=== PATIENT | female | born 1960 | race Caucasian/White ===

== ENCOUNTER 2020-07-13 10:58 | Emergency (ER) | payer OTHER ==
[~2020-07-13] VITALS: Ht 170.2 cm; Wt 86.6 kg
[~2020-07-13 10:58] MED LIST: ALLOPURINOL300 MG PO; ASPIRIN325 MG PO; CELECOXIB200 MG PO; CHANTIX1 MG PO; CYCLOBENZAPRINE10 MG PO; GABAPENTIN300 MG PO; HYDROCODON-ACE1 EA11 PO; LANTUS100 UNITS/ SUB-Q; LISINOPRIL30 MG PO; METFORMIN HCL1000 M1 PO; NEURONTIN300 MG PO; NORCO 10-325 T1 EACH PO; OMEPRAZOLE40 MG PO; OXYBUTYNIN CHLO10 MG PO; PROBIOTIC1 EAC1 PO; STOOL SOFTENER100 MG PO; VICTOZA 2-0.6 MG/0.1 SUB-Q; VITAMIN D50000 UNI1 PO
== END 2020-07-13 13:35 | disposition home or self-care (01) ==
LOC: ED 10:58
DX: D64.9 Anemia, unspecified (principal); E11.9 Type 2 diabetes mellitus without complications; I10 Essential (primary) hypertension; Z87.891 Personal history of nicotine dependence; Z88.5 Allergy status to narcotic agent; Z91.048 Other nonmedicinal substance allergy status; Z91.040 Latex allergy status; Z79.899 Other long term (current) drug therapy; Z79.4 Long term (current) use of insulin
CPT/HCPCS: 80048; 82607; 82728; 82746; 83540; 84466; 85025; 85045; 99284

== ENCOUNTER 2020-09-27 08:45 | Day surgery (SDC) | payer OTHER ==
[~2020-09-27] VITALS: Ht 170.2 cm; Wt 91.4 kg
[~2020-09-27 08:45] MED LIST changes: +HUMALOG100 UNIT/2 SUB-Q
--- NOTE | 2020-09-27 09:33 | NUR ---
0845: PATIENT ARRIVED TO DAY SURGERY UNIT. PLACED IN ROOM 6. PATIENT STATED SHE CAME EARLY FOR PROCEDURE DUE TO HER BLOOD SUGAR BEING LOW. PATIENT STATED HER BLOOD SUGAR WAS 51 MG/DL UPON AWAKENING THIS MORNING. 0855: BLOOD SUGAR CHECKED. BLOOD SUGAR 65 MG/DL. 0900: IV STARTED BY OTHER RN WHILE BLOOD SUGAR WAS REPORTED TO BURNER TENDER. NEW ORDERS RECEIVED. 09: 1/2 AMP OF D50 GIVEN IV TO PATIENT. THEN FLUSHED WITH 10 ML OF NS. 924: BLOOD SUGAR RECHECKED. BLOOD SUGAR 129 MG/DL. IV FLUIDS CHANGED TO D5 LR. SISTER AT BEDSIDE. CALL LIGHT WITHIN REACH.
[2020-09-27] MEDS ORDERED: PIOGLITAZONE HC15 MG PO (10:04)
--- NOTE | 2020-09-27 15:29 | NUR ---
09/27/20 1529 Elida Santos 1522- PT ARRIVES TO PACU NONAROUSABLE TO NOXIOUS STIMULI WITH AN OPA IN PLACE. RESP EVEN AND UNLABORED. OXYGEN SAT HIGH 90'S TO 100% ON 10L VIA MASK. 1526- OXYGEN TITRATED DOWN TO 6L VIA MASK. CBG TAKEN AND IS 146. MADELYN BAILEY CRNA AWARE. PT PASSING LARGE AMOUNTS OF FLATUS.
--- NOTE | 2020-09-28 11:20 | OR ---
[facility] [address] [place], [place] [address] Signed DATE OF OPERATION: 09/27/2020 SURGEON: Madelyn Carter MD PREOPERATIVE DIAGNOSIS: Anemia (hematocrit 24.6 with 0% reticulocytes, assess for anemia). POSTOPERATIVE DIAGNOSES: 1. Possible low-grade mid esophageal varices. 2. Diverticular changes of sigmoid colon. PROCEDURES: 1. Esophagogastroduodenoscopy with biopsy. 2. Total colonoscopy to cecum. ANESTHESIA: Intravenous sedation, propofol infusion, Madelyn Coleman CRNA INDICATIONS: This 60-year-old white woman is a patient Dr. Jaquelin Chapa, known to me from the past. She has numerous medical problems including distant history of hepatitis C. She also has diabetes, smoking, and so on. She has had H. pylori associated with gastritis in the past. She continues to smoke 1/2 pack of cigarettes a day. She is admitted at this time to undergo upper endoscopy to better characterize the source of anemia, which was consider "profound" with hematocrit of 24.6 in early July with normal platelet count with reticulocyte count of 0%. She is admitted to undergo upper endoscopy and colonoscopy to assess for gastrointestinal source of bleeding. If this is negative, consideration might be made for bone marrow biopsy. The risks of bleeding, infection, and perforation related to upper endoscopy and colonoscopy were reviewed with her. She understands and wished to proceed. FINDINGS: Upper endoscopy showed no lesion to account for anemia particularly. She did have what appeared to be low-grade esophageal varices, though this is not entirely certain. Photographs were taken of course. CLOtest biopsy was negative at 30 minutes post procedure. There was mild antral gastritis. As regards to the colon, the prep was adequate. Complete colonoscopy was undertaken to the cecum. She had diverticula of the sigmoid, but no sign of arteriovenous malformation, polyps, cancer, or colitis. DESCRIPTION OF PROCEDURE: Electronically Signed By: MADELYN CARTER MD 09/28/20 1120 PATIENT NAME: ABIGAIL STARR OPERATIVE REPORT DATE OF : 56 REPORT #: [id number] PHYSICIAN: MADELYN CARTER MD PCP: JAQUELIN CHAPA MD REPORT IS CONFIDENTIAL AND NOT TO BE RELEASED WITHOUT AUTHORIZATION [facility] [address] [place], [place] [address] Signed The patient was brought to the endoscopy suite and placed in lateral decubitus position, given intravenous sedation by the emery wheel molder with propofol infusional technique and full cardiopulmonary monitoring. A bite block was placed. An Olympus video upper endoscope was passed in the hypopharynx. Vocal cords were normal. Scope was advanced to the esophagus throughout its length. It showed no sign of neoplasm or stricture, but there was some suspicion of possible low-grade varices in the mid esophagus. The distal esophagus was normal, however. The scope was passed to the stomach, which was insufflated with air. Rugal folds were normal. There was mild antral gastritis. The pylorus was normal. Scope was passed through into the duodenum, which was normal. Biopsies were taken there, though there was no clear evidence of celiac disease. The scope was withdrawn and biopsies then taken of the antrum. Retroflexed view was undertaken showing a somewhat poor flap valve, but no large hiatal hernia per se. There were no gastric varices. There was no ulceration. There was no neoplasm. The scope was withdrawn to the distal esophagus, which looked reasonably normal and biopsies were obtained. There was no Kitchen's epithelium or varices at that site. The scope was withdrawn further and there did appear to be may have been low-grade varices. Photographs were taken. The scope was further withdrawn and removed. Plans were then made for colonoscopy. Additional sedation was given and digital rectal examination performed, which was normal. An Olympus video colonoscope was passed into the rectum and manipulated throughout the colon noting diverticular change of the sigmoid. The scope was ultimately advanced to the cecum. The ileocecal valve and appendiceal orifice were normal. Scope was withdrawn from the cecum and careful inspection showed no sign of polyps, colitis, or cancer; only diverticular changes of the sigmoid. Retroflexed view of the rectum was normal. The scope was removed and the patient was taken to the recovery room in good condition. CONCLUDING DIAGNOSES: No clear evidence of lesion to account for anemia. She will return to the ongoing care of Dr. Jaquelin Chapa and likely Dr. Blum. We will obtain a CBC today with copies to Dr. Blum and to Dr. Chapa to assess in particular for reticulocyte count as well. MD SELENA Gonzales/RONEN /[id number] Electronically Signed By: MADELYN CARTER MD 09/28/20 1120 PATIENT NAME: ABIGAIL STARR OPERATIVE REPORT DATE OF : 56 REPORT #: [id number] PHYSICIAN: MADELYN CARTER MD PCP: JAQUELIN CHAPA MD REPORT IS CONFIDENTIAL AND NOT TO BE RELEASED WITHOUT AUTHORIZATION [facility] [address] [place], [place] [address] Signed cc: MD Jaquelin Rebolledo MD Copies: JAQUELIN CHAPA DMD, ROBERT C MD ~ Electronically Signed By: MADELYN CARTER MD 09/28/20 1120 PATIENT NAME: ABIGAIL STARR USHA OPERATIVE REPORT DATE OF : 56 REPORT #: [id number] PHYSICIAN: MADELYN CARTER MD PCP: JAQUELIN CHAPA MD REPORT IS CONFIDENTIAL AND NOT TO BE RELEASED WITHOUT AUTHORIZATION
--- NOTE | 2020-10-01 14:28 | PATH ---
[facility] [address] [place], [place] [address] Signed SPECIMEN(S): A DUODENAL BIOPSY SPECIMEN(S): B ANTRUM/PYLORUS BIOPSY SPECIMEN(S): C LOWER ESOPHAGEAL BIOPSY SPECIMEN SOURCE: A. DUODENAL BIOPSY B. ANTRUM/PYLORUS BIOPSY C. LOWER ESOPHAGEAL BIOPSY CLINICAL HISTORY: Esophagogastroduodenoscopy, colonoscopy with propofol with poss biopsies. Anemia, pain and reflux. EGD: Possible esophageal varices. Colon: Diverticulosis. MICROSCOPIC DESCRIPTION: Histologic sections of all submitted blocks are examined by light microscopy. These findings, together with the gross examination, support the pathologic diagnosis. FINAL PATHOLOGIC DIAGNOSIS: A. Duodenum, biopsy: - Duodenal mucosa with no histopathologic abnormality. - Negative for increased intraepithelial lymphocytes. - Negative for dysplasia or malignancy. B. Stomach, antrum/pylorus, biopsy: - Oxyntic type mucosa with reactive changes. - Negative for Helicobacter organisms on HE stain. - Negative for dysplasia or malignancy. C. Esophagus, lower, biopsy: - Squamous mucosa with chronic inflammation and reactive epithelial changes, consistent with reflux esophagitis. - Negative for intestinal metaplasia, dysplasia, or malignancy. NAL:cml:C2NR GROSS DESCRIPTION: Three specimens are received in three containers, labeled "CB." A. The specimen, labeled "CB, duodenum biopsy," is received in formalin and consists of two peres soft tissue fragments that measure 0.1-0.2 cm in greatest dimension. The specimen is entirely submitted in cassette (A1). B. The specimen, labeled "CB, antrum biopsy," is received in formalin and consists of one peres soft tissue fragment that measures 0.2 cm in greatest PATIENT NAME: ABIGAIL STARR PATHOLOGY DATE OF : 56 REPORT #: [id number] PHYSICIAN: KATERIN TRVIEDI PCP: JAQUELIN CHAPA MD REPORT IS CONFIDENTIAL AND NOT TO BE RELEASED WITHOUT AUTHORIZATION [facility] [address] [place] [address] Signed dimension. The specimen is entirely submitted in cassette (B1). C. The specimen, labeled "CB, lower esophagus biopsy," is received in formalin and consists of one peres soft tissue fragment that measures 0.2 cm in greatest dimension. The specimen is entirely submitted in cassette (C1). JS (under the direct supervision of a pathologist) The Gross Description was prepared using a voice recognition system. The report was reviewed for accuracy; however, sound-alike word errors, addition and/or deletions may occur. If there is any question about this report, please contact Client Services. PERFORMING LABORATORY: The technical component was performed by [facility], [address] [place] [id number] (Pickle Solution Maker: Gaby Tijerina MD; CLIA# [id number]). [facility], [address] [address] (CLIA# [id number]). Diagnostician: Yohana De La Cruz MD Pathologist Electronically Signed 10/01/2020 Copies: ~ PATIENT NAME: ABIGAIL STARR PATHOLOGY DATE OF : 56 REPORT #: [id number] PHYSICIAN: KATERIN TRIVEDI PCP: JAQUELIN CHAPA MD REPORT IS CONFIDENTIAL AND NOT TO BE RELEASED WITHOUT AUTHORIZATION
== END 2020-09-27 15:55 | disposition home or self-care (01) ==
LOC: OPS 08:45 → DS 10:45 → OPS 12:15 → DS 12:15 → OPS 15:55
PROVIDERS: ATTEND Surgery
PROC: 0DB98ZZ Excision of Duodenum, Via Natural or Artificial Opening Endoscopic (ICD-10-PCS; principal; 2020-09-27 12:15)
PROC: 0DJD8ZZ Inspection of Lower Intestinal Tract, Via Natural or Artificial Opening Endoscopic (ICD-10-PCS; 2020-09-27 12:15)
DX: D50.9 Iron deficiency anemia, unspecified (principal); K21.00 Gastro-esophageal reflux disease with esophagitis, without bleeding; K57.30 Diverticulosis of large intestine without perforation or abscess without bleeding; K29.70 Gastritis, unspecified, without bleeding; E11.9 Type 2 diabetes mellitus without complications; I10 Essential (primary) hypertension; F17.210 Nicotine dependence, cigarettes, uncomplicated; B19.20 Unspecified viral hepatitis C without hepatic coma; Z79.84 Long term (current) use of oral hypoglycemic drugs; Z79.4 Long term (current) use of insulin
CPT/HCPCS: J2270; J2704; J7121

== ENCOUNTER 2021-02-25 05:40 | Day surgery (SDC) | payer OTHER ==
[~2021-02-25] VITALS: Ht 170.2 cm; Wt 92.0 kg
[~2021-02-25 05:40] MED LIST changes: +DICLOFENAC35 MG PO; +PIOGLITAZONE HC15 MG PO; +ULTRAM50 MG PO
[2021-02-25] MEDS ORDERED: OXYCODONE HCL5 MG PO (09:03)
[2021-02-25] MEDS ORDERED: XARELTO10 MG PO (09:03)
[2021-02-25] MEDS ORDERED: CELECOXIB200 MG PO (09:03)
[2021-02-25] MEDS ORDERED: SENNA LAX8.6 MG PO (09:04)
--- NOTE | 2021-03-01 07:05 | OR ---
[facility] [address] [place], [place] [address] Signed DATE OF OPERATION: 02/25/2021 SURGEON: Burke Sheets MD PREOPERATIVE DIAGNOSIS: Avascular necrosis, right hip. POSTOPERATIVE DIAGNOSIS: Avascular necrosis, right hip. PROCEDURE PERFORMED: Right total hip arthroplasty with Jordy. CAMPUS WELLNESS COORDINATOR: Roselia Lockwood PA-C. Roselia was present and critical for all portions of procedure. ANESTHESIA: Spinal. BLOOD LOSS: 200 mL. IMPLANTS: Napoleon size 6 Accolade II stem, 52 mm cup and -5 head. BRIEF HISTORY: Lorraine is a 60-year-old female with progressive worsening of hip pain. X-rays were relatively good. MRI showed a large area of AVN and she continued to have pain despite nonoperative treatment. DESCRIPTION OF PROCEDURE: Once consent was obtained, she was taken to the operating room. After adequate anesthesia, she was placed on operating room table in left lateral decubitus position. Axillary roll was placed and all downside pressure points were well padded. The hip was then prepped and draped in the standard sterile fashion. The three pins for the Jordy computer ray were placed in the pelvic crest two fingerbreadths posterior to the ASIS. This was done percutaneously and was quite solid. The incision for the anterior lateral approach was then taken through skin and subcutaneous tissue. IT band was divided longitudinally. The vastus lateralis was then split longitudinally and elevated Electronically Signed By: BURKE SHEETS MD 03/01/21 0705 PATIENT NAME: LORRAINE STARR OPERATIVE REPORT DATE OF : 56 REPORT #: [id number] PHYSICIAN: BURKE SHEETS MD PCP: JAQUELIN CHAPA MD REPORT IS CONFIDENTIAL AND NOT TO BE RELEASED WITHOUT AUTHORIZATION [facility] [address] [place], [place] [address] Signed anteriorly around to the level of the lesser trochanter in a subperiosteal manner. The gluteus medius was split bluntly in the anterior quarter and the gluteus minimus and capsule were split from the tip of the trochanter to the acetabular rim. This was then elevated off the anterior femoral neck. Excellent visualization was obtained. The hip was then dislocated, femoral neck cut made one fingerbreadth above the lesser trochanter and the head was passed off. The periacetabular soft tissue was removed and the was removed from the center of the acetabulum. The computer was then registered with the leg and the fine anatomic points of the hip and pelvis were then taken. Once this was accomplished, the robot was brought in and the hip was reamed per the plan to a 40-20 position. The cup was then impacted into the same position. It was quite stable and her bone was good. The liner was then placed and impacted. The attention was then turned to proximal femur. This was opened using the rae cutter followed by the Mala santamaria and lateralized the reamer. She was then sequentially broached, the preoperative planning called for a 4 stem, however, the 6 was the best fitting. We left it in position and placed a high offset neck and -5 head. We then reduced the hip and found it to be quite stable. She had 120 degrees of flexion with 30 of internal and external rotation. Leg lengths were equal. The hip was then reduced and the trials removed. The final stem was then impacted with a -5 head. The final examination showed equal leg lengths with excellent range of motion. The checkpoint was removed as was the pelvic ray. Wound was copiously irrigated with normal saline. A 10-minute wash was done in the middle. The On-Q pain pump was placed intracapsularly and the capsule was closed using #1 Vicryl. The vastus and IT band layers were closed independently using #2 Stratafix, subcutaneous tissue with a 0 Stratafix, and the skin with a 3-0 Stratafix. Steri-Strips were applied. The wound was dressed with an Acticoat 7 dressing. She tolerated the procedure well. All sponge, needle, and instrument counts were correct. Burke Sheets MD BA/MODL /[id number] Copies: Electronically Signed By: BURKE SHEETS MD 03/01/21 0705 PATIENT NAME: LORRAINE STARR OPERATIVE REPORT DATE OF : 56 REPORT #: [id number] PHYSICIAN: BURKE SHEETS MD PCP: JAQUELIN CHAPA MD REPORT IS CONFIDENTIAL AND NOT TO BE RELEASED WITHOUT AUTHORIZATION [address] [address] Signed ~ Electronically Signed By: BURKE SHEETS MD 03/01/21 0705 PATIENT NAME: LORRAINE STARR OPERATIVE REPORT DATE OF : 56 REPORT #: [id number] PHYSICIAN: BURKE SHEETS MD PCP: JAQUELIN CHAPA MD REPORT IS CONFIDENTIAL AND NOT TO BE RELEASED WITHOUT AUTHORIZATION
== END 2021-02-25 16:35 | disposition home or self-care (01) ==
LOC: DS 05:40
PROVIDERS: ATTEND Specialist
PROC: 0SR906Z Replacement of Right Hip Joint with Oxidized Zirconium on Polyethylene Synthetic Substitute, Open Approach (ICD-10-PCS; principal; 2021-02-25 06:45)
DX: M87.9 Osteonecrosis, unspecified (principal); M16.11 Unilateral primary osteoarthritis, right hip; F40.240 Claustrophobia; I10 Essential (primary) hypertension; E11.9 Type 2 diabetes mellitus without complications; K21.9 Gastro-esophageal reflux disease without esophagitis; Z87.891 Personal history of nicotine dependence
CPT/HCPCS: 01214; 72170; 97161; C1713; C1776; J0690; J1885; J2370; J2704; J2795; J3010; J7121

== ENCOUNTER 2021-05-29 17:52 | Emergency (ER) | payer OTHER ==
[~2021-05-29] VITALS: Ht 170.2 cm; Wt 91.6 kg
[~2021-05-29 17:52] MED LIST changes: +OXYCODONE HCL5 MG PO; +SENNA LAX8.6 MG PO; +XARELTO10 MG PO
--- OUTSIDE RECORDS SUMMARY | 2021-05-29 17:54 | XMS ---
PreManage Notification: ABIGAIL STARR Security Diagnostic Technician Events No recent Security Events currently on file CRITERIA MET - [facility] CARE PROVIDERS There are no care providers on record at this time. Al has no Care Guidelines for this patient. [facility]ke VISIT COUNT (12 MO.) 2 [facility] [place]ño TOTAL 2 NOTE: Visits indicate total known visits. ED/[facility] VISIT TRACKING (12 MO.) 05/29/2021 17:53 [facility] TYPE: Emergency COMPLAINT: - HEAD/ NECK PAIN 07/13/2020 10:[address] [facility] [place] TYPE: Emergency COMPLAINT: - ABNORMAL LABS DIAGNOSES: - Type 2 diabetes mellitus without complications - Allergy status to narcotic agent - Other hospital tray service worker (current) drug therapy - Essential (primary) hypertension - correction (current) use of insulin - Allergy status to narcotic agent - Latex allergy status - Anemia, unspecified - Personal history of nicotine dependence - Other nonmedicinal substance allergy status INPATIENT VISIT TRACKING (12 MO.) No inpatient visits to display in this time frame [email or web address]
[2021-05-29] MEDS ORDERED: VICTOZA 3-0.6 MG/0.1 SUB-Q (18:07)
[2021-05-29] MEDS ORDERED: BASAGLAR K100 UNIT/1 SQ (18:07)
[2021-05-29] MEDS ORDERED: TAMSULOSIN HCL0.4 MG PO (18:08)
[2021-05-29] MEDS ORDERED: ZANAFLEX4 MG PO (18:08)
== END 2021-05-29 19:59 | disposition left against medical advice (07) ==
LOC: ED 17:52
DX: R51.9 Headache, unspecified (principal); M43.6 Torticollis; R50.9 Fever, unspecified; E11.9 Type 2 diabetes mellitus without complications; I10 Essential (primary) hypertension; Z87.891 Personal history of nicotine dependence; Z88.5 Allergy status to narcotic agent; Z91.040 Latex allergy status; Z79.899 Other long term (current) drug therapy; Z79.4 Long term (current) use of insulin; Z79.84 Long term (current) use of oral hypoglycemic drugs
CPT/HCPCS: 70450; 80053; 85025; 99284-25; U0003

== ENCOUNTER 2024-06-08 07:35 | Day surgery (SDC) | payer MEDICARE, OTHER ==
[2024-06-01 11:01] VITALS: BP 151/86
[~2024-06-08] VITALS: Ht 170.2 cm; Wt 82.7 kg
[~2024-06-08 07:35] MED LIST changes: +BASAGLAR K100 UNIT/1 SQ; +CEFAZOLIN SODIUM 1 GM/10 ML SYR IV SCH; +IBLOOD GLUCOSE TEST STRIP 1 EA TEST VI PRN; +LACTATED RINGER'S 1,000 ML IV SCH; +LIDOCAINE HCL 1% 5 ML SDV INJ ONE; +OZEMPIC0.25 MG/02 SQ; +OZEMPIC1 MG/0.71 SQ; +TAMSULOSIN HCL0.4 MG PO; +VARENICLINE TART1 MG PO; +VICTOZA 3-0.6 MG/0.1 SUB-Q; +ZANAFLEX4 MG PO
[2024-06-08 08:17] VITALS: BP 158/73
[2024-06-08] MEDS ORDERED: propofoL 200 MG/20 ML VIAL ONE ×2 (09:22→10:08)
[2024-06-08] MEDS ORDERED: KETOROLAC TROMETHAMINE 30 MG/ML VIAL ONE (09:22)
[2024-06-08] MEDS ORDERED: LIDOCAINE HCL 2% 5 ML SDV ONE (09:22)
[2024-06-08] MEDS ORDERED: ACETAMINOPHEN 1,000 MG/100 ML VIAL ONE (09:22)
[2024-06-08] MEDS ORDERED: ondansetron HCL 4 MG/2 ML VIAL ONE (09:22)
[2024-06-08] MEDS ORDERED: HYDROmorphone HCL 1 MG/ML SYR IV PRN (10:00)
[2024-06-08] MEDS ORDERED: ondansetron HCL 4 MG/2 ML VIAL IV PRN (10:00)
[2024-06-08] MEDS ORDERED: IBLOOD GLUCOSE TEST STRIP 1 EA TEST VI PRN (10:00)
[2024-06-08] MEDS ORDERED: droPERidol 5 MG/2 ML VIAL IV PRN (10:00)
[2024-06-08] MEDS ORDERED: PROCHLORPERAZINE EDISYLATE 10 MG/2 ML VIAL IV PRN (10:00)
[2024-06-08] MEDS ORDERED: fentaNYL citrate 50 MCG/ML SDV IV PRN (10:00)
[2024-06-08] MEDS ORDERED: NALOXONE HCL 0.4 MG SYR IV PRN (10:00)
[2024-06-08] MEDS ORDERED: DEXAMETHASONE SOD PHOS 4 MG/ML VIAL ONE (10:23)
[2024-06-08 11:17] VITALS: BP 143/68
--- NOTE | 2024-06-09 19:09 | EKG ---
[facility] [address] [facility] [place] [address] Signed Normal sinus rhythm Normal ECG When compared with ECG of 25-SEP-2020 10:12, Criteria for Septal infarct are no longer present Confirmed by Sue Alvarez MD ([id number]) on 06/09/2024 7:09:18 PM Electronically Signed By: SUE ALVAREZ MD 06/09/24 1909 PATIENT NAME: ABIGAIL STARR Electrocardiogram DATE OF : 56 PHYSICIAN: SUE ALVAREZ MD REPORT #: [id number] REPORT IS CONFIDENTIAL AND NOT TO BE RELEASED WITHOUT AUTHORIZATION
--- NOTE | 2024-06-15 07:44 | OR ---
[facility] [address] [place], [place] [address] Signed DATE OF OPERATION: 06/08/2024 SURGEON: Pavan Gurrola DPM PREOPERATIVE DIAGNOSIS: Bunion deformity or hallux abducto valgus right foot. POSTOPERATIVE DIAGNOSIS: Bunion deformity or hallux abducto valgus right foot. PROCEDURE: Distal osteotomy, bunionectomy first metatarsal right foot. APPELLATE COURT CLERK: Vinod Hi DPM NURSE STARTER MECHANIC: Mike Tristan. ANESTHESIA: Local with MAC consisting of 15 mL of 1:1 mix of 2% lidocaine plain and 0.5% ropivacaine plain. ESTIMATED BLOOD LOSS: Less than 3 mL or minimal. HEMOSTASIS: With an ankle tourniquet. MATERIALS UTILIZED: 3-0 Vicryl, 4-0 Vicryl, 5-0 nylon, one 3.5 cannulated headless screw and a 3.0 headed screw. PROCEDURE IN DETAIL: The patient was brought into the operating room and placed upon the operating table in the supine position. Following IV sedation, the local anesthesia was administered about the patient's right medial foot. The right foot was then prepped and draped in usual sterile technique. An Esmarch bandage was utilized to exsanguinate the patient's right foot and then this was left wrapped around the ankle to act as a tourniquet Attention was then directed to the dorsomedial aspect of the patient's right first PATIENT NAME: ABIGAIL STARR OPERATIVE REPORT DATE OF : 56 REPORT #: [id number] PHYSICIAN: PAVAN GURROLA DPM PCP: JAQUELIN CHAPA MD REPORT IS CONFIDENTIAL AND NOT TO BE RELEASED WITHOUT AUTHORIZATION [facility] [address] [place], [place] [address] Signed metatarsal region where approximately a 6 cm linear incision was performed both parallel to medial to the tendon of the extensor hallucis longus. Careful dissection through the subcutaneous tissue was then performed with #64 blade with care being taken to identify and retract the vital neurovascular structures. Bleeders were cauterized and ligated as necessary. Careful dissection continued down to the level of the joint capsule. Linear capsulotomy was performed at this time with #64 blade and the capsule was reflected of the dorsal and medial aspect of the first metatarsal exposing the articular surface at the surgical site. It should be noted that the prominent medial eminence was noted. This was reduced with a sagittal saw. Normal bone density and normal coloration was identified and no significant pathology observed. On completion of the medial eminence osteotomy, attention was then directed to the first metatarsal and space region where both sharp and dull dissection was continued down utilizing a tenotomy. #64 blade was then utilized to resect the fibular ligament and the conjoint tendon of the abductor hallucis muscle. The extensor brevis muscle tendon was also identified along the dorsal first metatarsal head. This was also resected thus completing the soft tissue release. It was observed at this time that first digit was easily manipulated back into a more corrected position. Attention was then directed to the first metatarsal here a V-shaped osteotomy was performed with apex being located at the junction of the metatarsal head and metaphyseal region the arms radiating proximally both dorsal and plantar. The dorsal arm was approximately 3 to 4 times longer than that of the plantar arm. On completion of the osteotomy, the capital fragment was then slid laterally and impacted upon the shaft of the first metatarsal in a more corrected position. Two K-wires were then driven from dorsal to plantar through the osteotomy to act as temporary fixation and then also act as cannula support of the screw placement. Two screws were then placed, the distal screw being 3.5 in size and headless and the proximal screw being 3.0 is headed. These were placed following a standard AO fixation techniques. Good compression was observed with the distal screw, however, there was no good bite noted with the more proximal screw, however, going to a larger screw at this time was not feasible because of the shaft level. The remaining medial shelf was then resected with the sagittal saw. The area was flushed with copious amounts of sterile normal saline. Intraoperative x-ray was utilized to visualize screw placement as well as correction and this was found to be ideal. The joint capsule was then closed utilizing 3-0 Vicryl, subcutaneous tissue was closed utilizing 4-0 Vicryl and the integument was closed utilizing 5-0 nylon. Postoperative injection consisting of 1 mL of dexamethasone phosphate 1 mg/mL and 5 mL of 0.5% ropivacaine was administered. Adaptic was then placed over the surgical site followed by Betadine soaked gauze, fluff gauze, rolled gauze and Coban. The ankle tourniquet was removed and prompt hyperemic response was noted to all digits of the patient's right foot. The patient was then escorted to the recovery room by Anesthesia. The patient tolerated the procedure and the anesthesia well and following the period of postoperative monitoring, the patient was discharged to home with written and oral instructions. PATIENT NAME: ABIGAIL STARR OPERATIVE REPORT DATE OF : 56 REPORT #: [id number] PHYSICIAN: PAVAN GURROLA DPM PCP: JAQUELIN CHAPA MD REPORT IS CONFIDENTIAL AND NOT TO BE RELEASED WITHOUT AUTHORIZATION [facility] [address] [place], [place] [address] Signed MEAGAN Lynne/RONEN /[id number] Copies: ~ PATIENT NAME: ABIGAIL STARR USHA OPERATIVE REPORT DATE OF : 56 REPORT #: [id number] PHYSICIAN: PAVAN GURROLA DPM PCP: JAQUELIN CHAPA MD REPORT IS CONFIDENTIAL AND NOT TO BE RELEASED WITHOUT AUTHORIZATION
== END 2024-06-08 11:30 | disposition home or self-care (01) ==
LOC: OPS 07:35 → DS 07:35 → OPS 09:00 → DS 09:00 → OPS 11:30
PROVIDERS: ATTEND Podiatrist Foot & Ankle Surgery
PROC: 0QSN04Z Reposition Right Metatarsal with Internal Fixation Device, Open Approach (ICD-10-PCS; principal; 2024-06-08 09:00)
DX: M21.611 Bunion of right foot (principal); M20.11 Hallux valgus (acquired), right foot; E11.9 Type 2 diabetes mellitus without complications; I10 Essential (primary) hypertension; Z87.891 Personal history of nicotine dependence; Z79.84 Long term (current) use of oral hypoglycemic drugs; Z79.1 Long term (current) use of non-steroidal anti-inflammatories (NSAID); Z79.4 Long term (current) use of insulin; Z79.899 Other long term (current) drug therapy; Z91.040 Latex allergy status; Z88.5 Allergy status to narcotic agent; Z91.048 Other nonmedicinal substance allergy status; Z90.710 Acquired absence of both cervix and uterus
CPT/HCPCS: 01480; 73620; 73630; 93005; 93010; C1713; C1889; J0131; J0690; J1100; J1885; J2003; J2405; J2704; J7121

== ENCOUNTER 2024-07-20 05:30 | Day surgery (SDC) | payer MEDICARE, OTHER ==
[2024-07-18 15:05] VITALS: BP 120/63
[~2024-07-20] VITALS: Ht 170.2 cm; Wt 81.2 kg
[~2024-07-20 05:30] MED LIST changes: -CEFAZOLIN SODIUM 1 GM/10 ML SYR IV SCH; +DOXYCYCLINE HY100 MG PO; -IBLOOD GLUCOSE TEST STRIP 1 EA TEST VI PRN; -LIDOCAINE HCL 1% 5 ML SDV INJ ONE
[2024-07-20 06:04] VITALS: BP 130/76
[2024-07-20] MEDS ORDERED: propofoL 200 MG/20 ML VIAL ONE ×3 (06:10→07:23)
[2024-07-20] MEDS ORDERED: MIDAZOLAM HCL 2 MG/2 ML VIAL ONE (06:10)
[2024-07-20] MEDS ORDERED: LACTATED RINGER'S 1,000 ML IV ONE (06:10)
[2024-07-20] MEDS ORDERED: ondansetron HCL 4 MG/2 ML VIAL ONE (06:10)
[2024-07-20] MEDS ORDERED: KETOROLAC TROMETHAMINE 30 MG/ML VIAL ONE (06:10)
[2024-07-20] MEDS ORDERED: fentaNYL citrate 100 MCG/2 ML VIAL ONE (06:10)
[2024-07-20] MEDS ORDERED: DEXAMETHASONE SOD PHOS 4 MG/ML VIAL ONE ×2 (06:10→06:22)
[2024-07-20] MEDS ORDERED: METOCLOPRAMIDE HCL 10 MG/2 ML SDV ONE (06:10)
[2024-07-20] MEDS ORDERED: FAMOTIDINE 20 MG/ 2 ML VIAL ONE (06:10)
[2024-07-20] MEDS ORDERED: LIDOCAINE HCL 2% 20 MG/ML VIAL INJ ONE (06:22)
[2024-07-20] MEDS ORDERED: Ropivacaine HCl 0.5% 30 ML VIAL ONE (06:23)
[2024-07-20] MEDS ORDERED: LIDOCAINE HCL 1% 5 ML SDV INJ ONE (07:00)
[2024-07-20] MEDS ORDERED: IBLOOD GLUCOSE TEST STRIP 1 EA TEST VI PRN ×2 (07:00→07:45)
--- NOTE | 2024-07-20 07:40 | NUR ---
PT NOT AVAILABLE FOR VISIT. VISITED WITH SUPPORT PERSON IN ROOM. NO IMMEDIATE NEEDS. BARREL LATHE OPERATOR INSIDE PROVIDED SUPPORTIVE PRESENCE, HOSPITALITY, PRAYER, FACILITATED INTERACTION WITH THERAPY ANIMAL.
[2024-07-20] MEDS ORDERED: droPERidol 5 MG/2 ML VIAL IV PRN (07:45)
[2024-07-20] MEDS ORDERED: ondansetron HCL 4 MG/2 ML VIAL IV PRN (07:45)
[2024-07-20] MEDS ORDERED: MORPHINE SULFATE 10 MG/ML VIAL IV PRN (07:45)
[2024-07-20] MEDS ORDERED: NALOXONE HCL 0.4 MG SYR IV PRN (07:45)
[2024-07-20] MEDS ORDERED: METOCLOPRAMIDE HCL 10 MG/2 ML SDV IV PRN (07:45)
[2024-07-20] MEDS ORDERED: fentaNYL citrate 50 MCG/ML SDV IV PRN (07:45)
[2024-07-20] MEDS ORDERED: PROCHLORPERAZINE EDISYLATE 10 MG/2 ML VIAL IV PRN (07:45)
[2024-07-20 08:20] VITALS: BP 112/55
--- NOTE | 2024-07-20 08:40 | NUR ---
07/20/24 0840 Lucero Berry 0768 PT ARRIVED IN PACU NON RESPONSIVE TO NOXIOUS STIMULI WITH OPA IN PLACE. 0757 BLOOD SUGAR 103. 0758 PT REACTIVE. OPA REMOVED. 0800 THREE XRAY OF R FOOT TAKEN. 0805 SITTING UP IN BED SIPPING ON COFFEE AND TALKING TO STAFF. 0815 SCREWS RETURNED TO PT. 0830 LEFT VIA W/C.
--- NOTE | 2024-07-21 15:16 | OR ---
[facility] [address] [facility] [place], [place] [address] Signed DATE OF OPERATION: 07/20/2024 SURGEON: Pavan Gurrola DPM PREOPERATIVE DIAGNOSIS: Displaced hardware, right foot. POSTOPERATIVE DIAGNOSIS: Displaced hardware, right foot. PROCEDURE: Removal of deep orthopedic device or screws, right foot. MEDICAL SCIENTIFIC LIAISON: Vinod Hi DPM ANESTHESIA PROVIDER: Nurse nail technician teacher, Neto Bedolla. ANESTHESIA: Local with MAC. Local consisted of 14 mL of 1:1 mix of 2% lidocaine plain and 0.5% ropivacaine plain. HEMOSTASIS: With ankle tourniquet. ESTIMATED BLOOD LOSS: Less than 5 mL or minimal. MATERIALS UTILIZED: 5-0 nylon. PROCEDURE IN DETAIL: The patient was brought into the operating room and placed up on the operating table in the supine position. Following sedation, local anesthesia was administered about the patient's right first metatarsal head region. The right foot was then scrubbed, prepped and draped in the usual sterile technique. An Esmarch bandage was then utilized to exsanguinate the patient's right foot and then left wrapped around the ankle to act as a tourniquet. Following scar tissue from the previous incision, approximately a 3 to 4 cm incision was performed both parallel and medial to the extensor hallucis longus tendon. PATIENT NAME: ABIGAIL STARR USHA OPERATIVE REPORT DATE OF : 56 REPORT #: [id number] PHYSICIAN: PAVAN GURROLA DPM PCP: JAQUELIN CHAPA MD REPORT IS CONFIDENTIAL AND NOT TO BE RELEASED WITHOUT AUTHORIZATION [facility] [address] [place], [place] [address] Signed Scar tissue formation and altered soft tissue was noted in this region. Careful dissection was continued through soft tissue down to bone. Intraoperative fluoroscopy was utilized to pinpoint the proximal location of the hardware, that had been previously placed. Utilizing a [place] elevator, the soft tissue was freed from the dorsal aspect of the distal first metatarsal. Two ellipse screws were then encountered. Utilizing a hardware screwdriver from the company reimbursement representative, these screws were retrograded back and removed from the cortical surface and taken from the operative field. The area was then flushed with copious amount of sterile normal saline. The surgical site was then closed utilizing the 5-0 nylon in a continuous interlocking suture technique. Postoperative dressing was then applied consisting of a silver foam, bandage followed by fluff gauze, roll gauze and Coban. The ankle tourniquet was removed and prompt hyperemic response was noted to all digits of the patient's right foot. The patient had tolerated both the procedure and the anesthesia well and following the period of postoperative monitoring, the patient was discharged to home with both written and oral instructions. MEAGAN Lynne/KATRINL /[id number] Copies: ~ PATIENT NAME: ABIGAIL STARR USHA OPERATIVE REPORT DATE OF : 56 REPORT #: [id number] PHYSICIAN: PAVAN GURROLA DPM PCP: JAQUELIN CHAPA MD REPORT IS CONFIDENTIAL AND NOT TO BE RELEASED WITHOUT AUTHORIZATION
== END 2024-07-20 08:30 | disposition home or self-care (01) ==
LOC: DS 05:30 → OPS 05:30 → DS 07:00 → OPS 07:00 → DS 07:30 → OPS 08:30
PROVIDERS: ATTEND Podiatrist Foot & Ankle Surgery
PROC: 0QPN04Z Removal of Internal Fixation Device from Right Metatarsal, Open Approach (ICD-10-PCS; principal; 2024-07-20 07:00)
DX: T84.223A Displacement of internal fixation device of bones of foot and toes, initial encounter (principal); I10 Essential (primary) hypertension; G25.81 Restless legs syndrome; Z79.899 Other long term (current) drug therapy; Z88.5 Allergy status to narcotic agent; Z91.040 Latex allergy status; Z91.048 Other nonmedicinal substance allergy status; Z90.710 Acquired absence of both cervix and uterus
CPT/HCPCS: 01462; 73630; 76000; J1100; J1885; J2250; J2405; J2704; J2765; J2795; J3010; J7121